=== PATIENT | male | born 1970 | race Caucasian/White ===

== ENCOUNTER 2017-02-21 09:55 | Outpatient (CLI) | payer OTHER ==
[2017-02-21 17:58] LABS: BASOPHILS # (AUTO) 0.1 10^3/uL (0.0-0.1)
[2017-02-21 18:02] LABS: BASOPHILS % (AUTO) 0.7 %; EOSINOPHILS % (AUTO) 0.3 %; HCT - HEMATOCRIT 45.9 % (42.0-52.0); HGB - HEMOGLOBIN 15.4 g/dL (14.0-18.0); LYMPHOCYTES # (AUTO) 1.2 10^3/uL (1.5-3.5); LYMPHOCYTES % (AUTO) 12.5 %; MEAN CORPUSCULAR HEMOGLOBIN 32.2 pg (27.0-31.0); MEAN CORPUSCULAR HGB CONC 33.5 g/dL (32.0-36.0); MEAN CORPUSCULAR VOLUME 96.1 fL (80.0-94.0); MEAN PLATELET VOLUME 9.3 fL (7.4-11.4); MONOCYTES # (AUTO) 0.8 10^3/uL (0.0-1.0); MONOCYTES % (AUTO) 7.9 %; NEUTROPHILS # (AUTO) 7.7 10^3/uL (1.5-6.6); NEUTROPHILS % (AUTO) 78.6 %; NUCLEATED RED BLOOD CELLS AUTO 0.2 /100WBC; RED BLOOD COUNT 4.77 10^6/uL (4.70-6.10); RED CELL DISTRIBUTION WIDTH 12.6 % (12.0-15.0); UNCORRECTED WHITE BLOOD COUNT 9.8 x10^3/uL; WHITE BLOOD COUNT 9.8 x10^3/uL (4.8-10.8)
== END 2017-02-21 09:56 | disposition home or self-care (01) ==
LOC: LAB.F 09:55
PROVIDERS: ATTEND Nurse Practitioner Family
DX: M19.90 Unspecified osteoarthritis, unspecified site (principal)
CPT/HCPCS: 36415; 85025; 85651; 86140

== ENCOUNTER 2023-01-16 08:00 | Outpatient (CLI) | payer BC, OTHER ==
--- NOTE | 2023-01-16 12:51 | XRAY Report ---
PROCEDURE: Knee 3 View LT INDICATIONS: LEFT KNEE INJURY TECHNIQUE: 3 views of the left knee(s) were acquired. COMPARISON: 01/11/2016 FINDINGS: Bones: No displaced fracture. There is chondrocalcinosis. Patellar tilt is seen on sunrise view. Mild to moderate degenerative changes. Soft tissues: Large joint effusion is present. IMPRESSION: Large joint effusion. Mild to moderate degenerative changes, increased from prior imaging. Chondrocal cinosis. Patellar tilt. If there is high concern for further derangement, consider MRI evaluation. Reviewed by: Maximo Lomas MD on 01/16/2023 12:50 PM PDT Approved by: Maximo Lomas MD on 01/16/2023 12:50 PM PDT Station ID: [id number]
== END 2023-01-16 23:59 | disposition home or self-care (01) ==
LOC: DI.S 08:00
PROVIDERS: ATTEND Physician Assistant Medical
DX: S89.92XA Unspecified injury of left lower leg, initial encounter (principal); M25.462 Effusion, left knee; M17.12 Unilateral primary osteoarthritis, left knee; M11.262 Other chondrocalcinosis, left knee

== ENCOUNTER 2023-01-22 08:00 | Outpatient (CLI) | payer BC ==
--- NOTE | 2023-01-22 16:43 | XRAY Report ---
PROCEDURE: Knee 4 View LT INDICATIONS: LEFT KNEE PAIN TECHNIQUE: 4 views of the left knee(s) were acquired. COMPARISON: None. FINDINGS: Bones: No fractures or dislocations. No suspicious bony lesions. Soft tissues: Large knee joint effusion. Calcification within the medial and lateral compartments. M oderate tricompartmental periarticular osteophyte formation. Lateral subluxation of the patella. 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 IMPRESSION: 1. Osteoarthritis. 2. Chondrocalcinosis. 3. Knee joint effusion. 4. 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 5. No acute fracture. No osseous lesion. If symptoms and/or clinical suspicion for pathology continue , further assessment with repeat plain films, or advanced imaging (e.g., CT, MRI, or bone scan) is re commended for further assessment. Reviewed by: Elton Montilla MD on 01/22/2023 4:42 PM PDT Approved by: Elton Montilla MD on 01/22/2023 4:42 PM PDT Station ID: [id number]
== END 2023-01-22 23:59 | disposition home or self-care (01) ==
LOC: DI.WOS 08:00
PROVIDERS: ATTEND Orthopaedic Surgery Sports Medicine
DX: M24.362 Pathological dislocation of left knee, not elsewhere classified (principal); M17.12 Unilateral primary osteoarthritis, left knee; M11.262 Other chondrocalcinosis, left knee; M25.462 Effusion, left knee